=== PATIENT | male | born 1965 | race Caucasian/White ===

== ENCOUNTER 2020-05-20 17:33 | Emergency (ER) | payer OTHER, SELFPAY ==
[2020-05-20 17:36] VITALS: BP 143/91; PULSE 85; RESP 16; TEMP 36.7; O2SAT 98; BMI 27.3
--- NOTE | 2020-05-20 17:42 | HMH.EDGENADL ---
ED Disposition Clinical Impression: Acute anxiety Disposition: Home, Self-Care Condition on Discharge: Good Instructions: Anxiety Disorders, Anxiety and Panic Attacks (Alternative Therapy) Prescriptions: hydrOXYzine pamoate [Vistaril 25mg capsule] 25 mg PO BID PRN #10 cap PRN Reason: Anxiety Prescription Printed Referrals: Lakhwinder Escobedo MD [Staff Physician] - - Critical Care Critical Care Time: No Attestation: On , the high probability of a clinically significant, sudden or life threatening deterioration of the following system(s) required my full and direct attention, intervention and personal management. The time I documented below is in addition to time spent performing reported procedures but includes the following listed in this critical care notation. Medical Decision Making - Medical Records Medical records reviewed: Yes: I reviewed the patient's medical records. - Kaushal Inquiry Pt receiving controlled substance: No Vital Signs: 05/20/20 17:36 Temperature 98.1 F Temperature Source Oral Pulse Rate [Left Radial] 85 Respiratory Rate 16 Blood Pressure [Right Arm] 143/91 H Blood Pressure Mean [Right Arm] 108 Blood Pressure Position [Right Arm] Sitting 02 Sat by Pulse Oximetry 98 Oxygen Delivery Method Room Air Orders (Tests/Meds): ED MEDICATIONS Discontinued Medications Generic Name Dose Route Start Last Admin Trade Name Freq PRN Reason Stop Dose Admin Hydroxyzine Pamoate 25 mg 05/20/20 17:52 Vistaril 25mg Capsule PO 05/20/20 17:53 ONCE ONE Medical Decision Narrative: Patient here with increased situational anxiety. Given Vistaril here and will discharge home with a short course of this as well. He does not currently have a primary care doctor, but does have an idea of who he would like to follow-up with and [facility] which is where he lives. No suicidal or homicidal ideation. No recent acute illnesses that would prompt further work-up. Discussed continuing to use his son as social support and encouraged to return for any worsening symptoms. General Adult HPI - General Stated complaint: Anxiety Time Seen by Provider: 05/20/20 17:42 Mode of Arrival: Ambulatory Source of Information: Patient Limitations: No Limitations - History of Present Illness HPI narrative: 54-year-old male with a past medical history significant for anxiety who presents to the emergency department for evaluation of increased anxiety over the last several days. He has had some social situations recently that have caused him to have heightened anxiety. He struggled with this in his early 20s, but has not had many issues since, but then he had repeated night terrors for many years. He has been using his son poor social support and denies any suicidal or homicidal ideation. No recent acute illnesses. He states he is having trouble sleeping and feels fidgety. - Related Data Previous Rx's Medication Instructions Recorded hydrOXYzine pamoate [Vistaril 25mg 25 mg PO BID PRN #10 cap 05/20/20 capsule] Allergies Allergy/AdvReac Type Severity Reaction Status Date / Time No Known Allergies Allergy Verified 05/20/20 17:56 [facility] History - Hepatitis A Screen Attestation statement:: This patient has been screened for Hepatitis A risk factors. I have reviewed the patient's past medical history: Yes Medical History: Reports:: Anxiety ROS Obtained: Yes All systems reviewed & no additional complaints Physical Exam - General General appearance: alert, in no apparent distress - Head Head exam: atraumatic, normocephalic - Eye Eye exam: Present: normal appearance, PERRL, EOMI - ENT ENT exam: Present: normal exam, mucous membranes moist - Respiratory Respiratory exam: Present: normal lung sounds bilaterally. Absent: respiratory distress - Cardiovascular Cardiovascular exam: Present: regular rate, normal rhythm. Absent: JVD - Abdominal Exam Abdominal
[2020-05-20 18:06] VITALS: BP 130/85; PULSE 79; RESP 17; TEMP 36.7; O2SAT 98
== END 2020-05-20 18:08 | disposition home or self-care (01) ==
PROVIDERS: Emergency Provider Emergency Medicine
DX: F43.0 Acute stress reaction (principal)
CPT/HCPCS: 99281

== ENCOUNTER 2023-10-21 10:47 | Outpatient (CLI) | payer BC, SELFPAY ==
--- NOTE | 2023-10-21 11:05 | ECG_ITS ---
APPROVED REPORT Exam: Resting ECG HR:72 bpm ECG Measurements Heart Rate 72 AXES AR 140 P 76 QRSd 77 QRS 56 QT 356 T 79 QTc 379 Conclusion SINUS RHYTHM NORMAL ECG UNCONFIRMED REPORT Electronically signed by : Villa Collier MD 10/22/2023 21:26:54
[2023-10-21 11:08] LABS: Microscopic, Urine URINE MICROSCOPIC (MICROSCOPIC)
[2023-10-21 11:54] LABS: Basophils # 0.1 K/mm3 (0-0.2); Basophils % 0.6 % (0.1-2.0); Eosinophils # 0.1 K/mm3 (0.0-0.4); Eosinophils % 0.7 % (0.1-12.0); Hematocrit 47.8 % (42.0-52.0); Hemoglobin 16.4 g/dL (14.1-18.0); Lymphocytes # 3.1 K/mm3 (0.7-4.5); Lymphocytes % 28.6 % (10-50); Mean Corpuscular HGB Conc 34.3 g/dL (31.8-35.4); Mean Corpuscular Hemoglobin 31.1 pg (27.0-31.2); Mean Corpuscular Volume 90.5 fl (80-94); Mean Platelet Volume 7.7 fl (7.4-10.4); Monocytes # 0.7 K/mm3 (0.1-1.0); Monocytes % 6.5 % (1.7-9.3); Neutrophils # 6.8 K/mm3 (1.8-7.8); Neutrophils % 63.6 % (37.0-80.0); Platelet Count 246 K/mm3 (142-424); Red Blood Count 5.28 M/mm3 (4.60-6.20); Red Cell Distribution Width 13.8 % (11.5-17.5); White Blood Count 10.6 K/mm3 (4.8-10.8)
[2023-10-21 12:05] LABS: Appearance,Urine CLEAR (Clear); Bilirubin,Urine Negative (Negative); Blood, Urine Negative (Negative); Color,Urine YELLOW (Yellow); Glucose,Urine (UA) Negative (Negative); Ketones,Urine Negative (Negative); Leukocyte Esterase,Urine Negative (Negative); Nitrate,Urine Negative (Negative); PH,Urine 7.5 (5.0-8.5); Protein,Urine Negative (Negative); Specific Gravity, Urine 1.015 (1.005-1.030); Urobilinogen,Urine 0.2 EU/dl (0.2)
[2023-10-21 12:10] LABS: Chloride 101 mmol/L (98-107); Potassium 3.8 mmoL/L (3.5-5.1); Sodium 140 mmol/L (136-145)
[2023-10-21 12:13] LABS: Anion Gap 12.8 mEq/L (5-15); Blood Urea Nitrogen 12 mg/dl (9-20); Calcium 8.9 mg/dl (8.4-10.2); Carbon Dioxide 30 mmol/L (22.0-30.0); Estimated Glomerular Filt Rate 76 ml/min (>60); GFR (African American) 92 ML/MIN (>60); Glucose 94 mg/dl (74-100)
[2023-10-21 12:22] LABS: Bacteria,Urine Trace /lpf; Squamous Epithelial Cell,Urine Occasional #/hpf (0-5)
== END 2023-10-21 23:59 ==
LOC: LAB 10:48
PROVIDERS: PCP Family Medicine; Visit Provider Surgery
DX: Z01.818 Encounter for other preprocedural examination (principal); K40.90 Unilateral inguinal hernia, without obstruction or gangrene, not specified as recurrent
CPT/HCPCS: 36415; 80048; 81001; 85025; 93005

== ENCOUNTER 2023-10-29 08:18 | Day surgery (SDC) | payer BC, SELFPAY ==
[2023-10-28 12:50] VITALS: BMI 28.3
[2023-10-29] VITALS (9 sets, daily range): BP systolic 124–150; BP diastolic 68–87; PULSE 72–85; RESP 15–20; TEMP 36.4–37.6; O2SAT 93–98
[2023-10-29] MEDS: LACTATED RINGERS 1000ML 1,000 ML 25 ML IV (08:54)
--- NOTE | 2023-10-29 09:01 | EXP.ANES.CKL ---
[facility] Disclaimer: The information contained in this section may have been updated after the patient was seen, as this information can be updated by other users. Medical History Left inguinal hernia Surgical History History of appendectomy History of colonoscopy Family History Mother Cancer colon cancer Diabetes Father Coronary artery disease Social History (Updated 10/29/23 @ 08:50 by Itzel Harrison RN) Smoking Status: Never smoker alcohol intake: never substance use type: denies use current occupational status: employed Travel in the last 8 weeks: None household members: other details: mother, sister, brother in law housing: house [facility] Anesthesia Checklist Patient Identification Patient Identification: Arm Band Structural Data Admitted From: Home Planned Operative Procedure/s: Open Left Inguinal Hernia Repair Consent for Planned Operative Procedure(s) Verified: Yes Verified Documents: Surgical Consent and History and Physical NPO Status Verified Time NPO: 00:00 Additional verifications Anesthesia Reactions: No Hx Blood Transfusions: No Blood Transfusion Reaction: No Airway Assessment Mallampati Score:: Class II C-Spine Mobility Assessed: Yes TMJ Mobility Assessed: Yes Dentition: Good Dentition Neurological Assessment Level of Consciousness: Awake and Alert Anesthesia Plan Anesthesia Risk discussed: Yes Anesthesia Plan: Verified ASA Class: II Anesthesia Type: General
[2023-10-29] MEDS: CEFAZOLIN SODIUM 1 GM in 0.9 % SODIUM CHLORIDE 50 ML IV (10:30)
[2023-10-29] MEDS: LIDOCAINE 1% 30ML PF VIAL 30 ML (10:50)
--- NOTE | 2023-10-29 10:52 | PC.NURSE ---
Addendum entered by Sole Mejia RN 10/29/23 11:04: Wrong patient. Enter error. Original Note: 1000- Crepitus noted in upper chest and neck on arrival to PACU. MD notified and anesthesia aware of condition. VSS, no further orders at this time.
--- NOTE | 2023-10-29 12:55 | P.OP_ITS ---
Date of procedure: 10/29/23 Pre-op Diagnosis:: Chronically-incarcerated left scrotal hernia Post-op Diagnosis:: Same Procedure performed:: Open left inguinal hernia repair (chronically-incarcerated scrotal hernia) Surgeon:: Red Thurston MD AUDIO/VISUAL MANAGER:: Jason Wolf Anesthesia: GETA Estimated blood loss (mL): 25 Operative findings:: Chronically-incarcerated colon Severe inflammatory changes throughout canal Hernia sac, incarcerated colon, vessels, and vas deferens severely adhesed Operative note:: After informed consent was obtained the patient was taken to the operating room and placed in the supine position. General anesthesia was induced and his lower abdomen and groin/scrotum were prepped and draped in a sterile fashion. After infiltration with local anesthetic an oblique incision was made in the left jayla in. Dissection was taken through Clayton's fascia to the level of the external aponeurosis. Massive distention consistent with chronic incarceration immediately noted. The aponeurosis was partially damaged by underlying incarcerated contents/pressure. The external aponeurosis (remaining portion) was sharply opened to the level of the external ring/incarcerated contents. An underlying massive hernia sac with projection throughout the inguinal canal and scrotum was encountered. Severe adhesions and inflammatory changes noted. Identifying the vas deferens and vasculature was exceptionally difficult secondary to these findings; however, no obvious injury to these structures noted.. The hernia sac was carefully opened. Gentle/persistent traction was utilized to free incarcerated colon from the scrotum. No obvious perforation or areas of ischemia noted. A small serosal rent was reapproximated with running Vicryl suture. The freed colon was then carefully maneuvered back into the a bdominal cavity. A focal attachment of colon to hernia sac consistent with sliding hernia was confirmed. The hernia sac was carefully elevated and transected just beyond the level of the internal ring. The distal hernia sac was freed from surrounding tissue and passed off for pathologic evaluation. No obvious injury to vasculature or vas deferens noted. As stated above, severe inflammatory changes noted throughout and adhesions made this dissection very difficult and anatomic identification difficult. An extra-large PerFix plug was secured in position with interrupted Ethibond. The PerFix overlay was then secured to the shelving edge inferiorly and fascial margin superiorly with interrupted Ethibond. The external aponeurosis was reapproximated with running Vicryl suture. Clayton's fascia was closed in the same manner. The INSORB stapling device was then used to close skin. Dressings were applied and the patient was transferred to recovery in stable condition. Condition: stable Disposition: PACU Specimens:: Hernia sac Complications:: No immediate
--- NOTE | 2023-10-29 13:05 | EXP.ANES.I ---
[facility] Anesthesia Record Part I Anesthesia Record I Intake, IV Amount: 800 Hydration: Adequate Estimated blood loss (mL): 15 Urine output (mL): 0 Blood Pressure: 129/79 SaO2: 94 Pulse Rate: 72 Airway Patency: Patent Respiratory Rate: 15 Temperature: 99.6 F Patient is:: Drowsy and Oral/Nasal airway Stable to PACU at:: 13:04
[2023-10-30 11:49] VITALS: BP 131/87; PULSE 84; RESP 20; TEMP 36.4; O2SAT 94
--- NOTE | 2023-10-30 11:49 | EXP.ANES.II ---
[facility] Anesthesia Record Part II Anesthesia Record Part II Discharge Time: 13:34 Destination: Surgical Day Care (OP Surgery) PACU nurse assessment reviewed?: Yes Patient Condition:: Good Anesthesia Complications:: None Swallowing reflex intact?: Yes Airway Patency: Patent Cyanosis?: No Blood Pressure: 131/87 SaO2: 94 Respiratory Rate: 20 Pulse Rate: 84 Temperature: 97.6 F Mental Status: Alert & Oriented Pain level:: 0 Nausea and/or vomitting:: None Intake, IV Amount: 0 Hydration: Adequate
== END 2023-10-29 14:10 | disposition home or self-care (01) ==
PROVIDERS: PCP Family Medicine; Visit Provider Surgery
PROC: (CPT 49507; principal; 2023-10-29 10:00)
DX: K40.30 Unilateral inguinal hernia, with obstruction, without gangrene, not specified as recurrent (principal)
CPT/HCPCS: 49507; 87086; 96374; J2405

== ENCOUNTER 2024-01-13 10:50 | Outpatient (CLI) | payer BC, SELFPAY ==
--- NOTE | 2024-01-13 10:50 | FL_ITS ---
FINAL REPORT CLINICAL HISTORY: dysphagia 186.24 dap 2.38 fluoro time FINDINGS: MODIFIED BARIUM SWALLOW History: Dysphagia FINDINGS: Fluoroscopy was provided for the speech pathologist to evaluate the swallowing mechanism. The patient was given several different consistencies of barium while the swallow was visualized fluoroscopically. The report of the speech pathologist should be consulted prior to making dietary decisions. FLUOROSCOPY TIME: 2 minutes 38 seconds Fluoro dose: 186.24 DAP in uGym2 IMPRESSION: Modified barium swallow under fluoroscopic guidance. Please see the report of the speech pathologist for Dietary recommendations. Films reviewed , interpreted and dictated by Dr. Hoskins Transcribed by Jeremy Eaton PA-C. Reviewed, Interpreted and Dictated by Marty Hoskins III, MD Transcribed by HEBERT Valles Authenticated and [facility]
[2024-01-13] MEDS: BARIUM SULFATE(LIQUID E-Z-PAQUE);355ML BOTTLE 355 ML PO (11:16)
--- NOTE | 2024-01-13 11:45 | HMH.SLMBS2 ---
Speech & Language Evaluation Speech/Language Mod Barium Swallow Start: 01/13/24 11:23 Freq: once Status: Complete Protocol: Document 01/13/24 11:23 BOY (Rec: 01/13/24 11:45 BOY [id number]) General Information General Current Food Consistancy Regular,Thin Liquids Dentition Good Dentition Oxygen Status Room Air Patient Orientation Person,Place,Time,Situation Ability to Follow Directions Good Communication Ability No Impairment MBS Recommendations Diet Dietary Recommendations Regular,Thin Liquids Treatment/Strategies Treatment Recommendation Compens. Strategy Educat. Strategy/Precaution Recommend Sitting Upright (90 deg), Double Swallow,No Straw,Small Bites and Sips,Alternate Liquids/Solids Mod Barium Swallow Impressions Summary and Impressions Oral Phase Impression Mild Impairment Oral Phase Summary Mild impairment of the oral preparatory and oral transit of the swallow. Solid bolus trials were observed to scatter with residuals found at roof of oral cavity and under patients tongue. He required multiple swallows to clear these residuals. Mr. Dotson reported he feels like food frequent gets stuck in his oral cavity. FULL TIME educated on use of extra sauces and gravys with his solid bolus, as well as implementation of a puree/pudding wash at meals and he expressed understanding . Pharyngeal Phase Impression Mild Impairment Pharyngeal Phase Summary Mild impairment of the pharyngeal phase of the swallow. No aspiration observed throughout the study. When presented with straw sips of thin liquids, pt exhibited ijeoma residuals in the vallecular space that required multiple, hard swallows to clear. He was also noted to require multiple swallow attempts to clear solid bolus. Across all consistencies swallow is delayed. Speech/Language MBS Assessment/Goals/Plan Assessment Date of Evaluation: 01/13/24 Evaluation Type Initial Certification Assessment/Problems dysphagia per MD order. Does Patient Qualify for Service No Qualify/Failure Comment Based on clinical observations made during MBSS, throughout implementation of compensatory strategies and aspiration precautions, Mr. Dotson's oropharyngeal phase of the swallow is WFL given age and dx. Recommendations PHYSICIAN CERTIFICATION: The specified therapy services are required, authorized, and reviewed every 30 days. Diet Recommendations Normal Liquid Type Recommendations Normal/Thin SL Swallow Guidelines Alt bite w/sip thru meal, Standard Aspiration Prec. Dysphagia Swallow Precautions/Strategies Sitting Upright (90 deg), Double Swallow,No Straw,Small Bites and Sips,Alternate Liquids/Solids Plan Pt/Guardian verbally ack understanding Yes of dx/prognosis/goals G -code Required No Education Instructions provided Discussed MBSS results, recommendations, strategies, and precautions with pt who expressed understanding. Pt/Caregiver able to recall information Able to recall/restate Reinforcement needed No Mod Barium Swallow Setup Exam Setup Radiologist Marty Hoskins Level of Consciousness Awake,Alert,Appropriate, Follows Commands Mod Barium Swallow-Lat View Textures Lateral View Food Presentation Thin Liquid via Cup,Thin Liquid via Straw,Pureed Food- Thin,Mech. Soft Food- Regular, Barium Tablet,Regular Food, Pudding Oral Phase Labial Closure No Impairment (WFL) Bolus Formation Pooling L/R Minimal Impairment Bolus Formation under Tongue Mild Impairment Bolus Formation Scattered Loss Mild Impairment Mastication Rotary Chew Minimal Impairment Mastication Munching Minimal Impairment Mastication Lateralization Mild Impairment Lingual Movement Mild Impairment Residue Clearing Mild Impairment Pharyngeal Phase A/P Lingual Propulsion Spills Mild Impairment Swallow Response Delay Mild Impairment Base of Tongue Minimal Impairment Epiglottic Coverage Minimal Impairment Laryngeal Elevation Mild Impairment Vallecular Retention Clearing Mild Impairment Pharyn. Wall Residue Clearing Minimal Impairment Piriform Sinus Retention Minimal Impairment Aspiration? No Silent aspiration? No Mod Barium Swallow-AP View Performed Mod Barium Swallow A/P View Test Not Applicable/Performed PHYSICIAN CERTIFICATION: I certify the specified therapy services for Bob Dotson are required, authorized, and reviewed every 30 days.
== END 2024-01-13 23:59 ==
LOC: RAD 10:50
PROVIDERS: PCP Family Medicine; Visit Provider Specialist
DX: R13.10 Dysphagia, unspecified (principal)
CPT/HCPCS: 70371; 92611

== ENCOUNTER 2025-05-30 10:45 | Outpatient (CLI) | payer OTHER, SELFPAY ==
[2025-05-30 19:36] LABS: Hematocrit 43.5 % (42.0-52.0); Hemoglobin 14.3 g/dL (14.1-18.0); Immature Granulocytes % 0.2 %; Mean Corpuscular HGB Conc 32.9 g/dL (31.8-35.4); Mean Corpuscular Hemoglobin 29.3 pg (27.0-31.2); Mean Corpuscular Volume 89.1 fl (80-94); Nucleated Red Blood Cells % 0 %; Platelet Count 223 K/mm3 (142-424); Red Blood Count 4.88 M/mm3 (4.60-6.20); Red Cell Distribution Width-SD 42.0 fL; White Blood Count 8.2 K/mm3 (4.8-10.8)
[2025-05-30 20:01] LABS: Alanine Aminotransferase 8 U/L (12-78); Albumin Level 4.4 g/dl (3.5-5.0); Albumin/Globulin Ratio 1.6 (1.1-1.8); Alkaline Phosphatase 56 U/L (38-126); Anion Gap 14.3 mEq/L (5-15); Aspartate Amino Transferase 35 U/L (17-59); Bilirubin,Total 0.8 mg/dl (0.2-1.3); Blood Urea Nitrogen 12 mg/dl (9-20); Calcium 8.9 mg/dl (8.4-10.2); Carbon Dioxide 23 mmol/L (22.0-30.0); Chloride 107 mmol/L (98-107); Cholesterol 215 mg/dl (140-200); Creatinine,Serum 1.00 mg/dl (0.66-1.25); Estimated Glomerular Filt Rate 76 ml/min (>60); GFR (African American) 92 ML/MIN (>60); Globulin 2.7 g/dL (1.3-3.2); Glucose 74 mg/dl (74-100); HDL Cholesterol 40 mg/dl (40-60); Potassium 4.3 mmoL/L (3.5-5.1); Sodium 140 mmol/L (136-145); Total Protein,Serum 7.1 g/dl (6.3-8.2); Triglycerides 172 mg/dl (30-150)
[2025-05-30 20:32] LABS: Thyroid Stimulating Hormone 2.05 uIU/mL (0.465-4.68)
[2025-05-30 20:51] LABS: Vitamin B12 337 pg/mL (239-931)
== END 2025-05-30 23:59 | disposition home or self-care (01) ==
LOC: LAB.DROPOF 05-31 12:41
PROVIDERS: PCP Family Medicine; Visit Provider Family Medicine
DX: E53.8 Deficiency of other specified B group vitamins (principal); I10 Essential (primary) hypertension; G20.C Parkinsonism, unspecified; Z68.30 Body mass index [BMI] 30.0-30.9, adult
CPT/HCPCS: 80053; 80061; 82607; 84443; 85025

== ENCOUNTER 2025-06-27 06:43 | Day surgery (SDC) | payer OTHER, SELFPAY ==
[2025-06-23 10:04] VITALS: BMI 29.9
[2025-06-27] MEDS: LACTATED RINGERS 1000ML 1,000 ML 50 ML IV (06:58)
[2025-06-27 07:06] VITALS: BP 140/79; PULSE 75; RESP 18; TEMP 36.1; O2SAT 97
--- NOTE | 2025-06-27 07:23 | EXP.ANES.CKL ---
[facility] Disclaimer: The information contained in this section may have been updated after the patient was seen, as this information can be updated by other users. Medical History Vitamin B12 deficiency Tremor Minimal resting tremor Parkinsonian syndrome Most likely Parkinson disease with excellent response to carbidopa/levodopa CR 50/200 tid. May benefit from increasing dose or adding Comtan but reluctant to change medication at this time. Hypertension History of inguinal hernia Left inguinal hernia Large complex left scrotal hernia Surgical History History of hernia surgery History of appendectomy History of colonoscopy Family History Mother Cancer colon cancer Diabetes Father Coronary artery disease Social History (Updated 06/27/25 @ 07:04 by Mac Busch RN) Smoking Status: Never smoker alcohol intake: never substance use type: denies use current occupational status: disabled Travel in the last 8 weeks?: None household members: family housing: house Have you lived/traveled outside [place] in past 30 days?: No Contact w/someone who lives/traveled outside US past 30 days?: No Exposure to someone with infectious disease in past 14 days?: No Do you have a fever (greater than 100.4 F or 38 C)?: No Have you tested positive for COVID-19?: No Exposed to someone with COVID-19 in past 14 days?: No Do you have a sore throat?: No Do you have a cough?: No Do you have any weakness?: No Are you experiencing any nausea/vomitting?: No Do you have any diarrhea?: No Are you experiencing any unusual bleeding?: No Do you have any muscle aches/pain?: No Do you have any abdominal pain?: No Are you experiencing loss of taste or smell?: No [facility] Anesthesia Checklist Patient Identification Patient Identification: Arm Band and Verbal (Name & ) Structural Data Admitted From: Home Planned Operative Procedure/s: colonoscopy Consent for Planned Operative Procedure(s) Verified: Yes Verified Documents: Surgical Consent NPO Status Verified Time NPO: 00:00 Chart Verification Results Verified: None Additional verifications Anesthesia Reactions: No Hx Blood Transfusions: No Blood Transfusion Reaction: No Airway Assessment Mallampati Score:: Class II C-Spine Mobility Assessed: Yes TMJ Mobility Assessed: Yes Dentition: Good Dentition Neurological Assessment Level of Consciousness: Awake, Alert and Appropriate Hx Seizures: No Numbness or tingling in extremities: No Anesthesia Plan Anesthesia Risk discussed: Yes Anesthesia Plan: Verified ASA Class: II Anesthesia Type: MAC
--- NOTE | 2025-06-27 07:32 | EXP.GEN.HP ---
HPI HPI HPI: This is a 60-year-old gentleman who presents for colonoscopy. He reports a family history of colon cancer. [facility] Disclaimer: The information contained in this section may have been updated after the patient was seen, as this information can be updated by other users. Medical History Vitamin B12 deficiency Tremor Minimal resting tremor Parkinsonian syndrome Most likely Parkinson disease with excellent response to carbidopa/levodopa CR 50/200 tid. May benefit from increasing dose or adding Comtan but reluctant to change medication at this time. Hypertension History of inguinal hernia Left inguinal hernia Large complex left scrotal hernia Surgical History History of hernia surgery History of appendectomy History of colonoscopy Family History Mother Cancer colon cancer Diabetes Father Coronary artery disease Social History (Updated 06/27/25 @ 07:04 by Mac Busch RN) Smoking Status: Never smoker alcohol intake: never substance use type: denies use current occupational status: disabled Travel in the last 8 weeks?: None household members: family housing: house Have you lived/traveled outside US in past 30 days?: No Contact w/someone who lives/traveled outside US past 30 days?: No Exposure to someone with infectious disease in past 14 days?: No Do you have a fever (greater than 100.4 F or 38 C)?: No Have you tested positive for COVID-19?: No Exposed to someone with COVID-19 in past 14 days?: No Do you have a sore throat?: No Do you have a cough?: No Do you have any weakness?: No Are you experiencing any nausea/vomitting?: No Do you have any diarrhea?: No Are you experiencing any unusual bleeding?: No Do you have any muscle aches/pain?: No Do you have any abdominal pain?: No Are you experiencing loss of taste or smell?: No Other Medical History Have you received the Flu Vaccine for this season: No Have you received the Pneumonia Vaccine: No Review of Systems Review of Systems Review of systems:: pertinent systems reviewed and negative unless documented below Meds Home Medications and Allergies Home Medications ?Medication ?Instructions ?Recorded ?Confirmed ?Type carbidopa ER 50 mg-levodopa 200 mg 1 tab PO TID #90 tabs 12/26/24 06/27/25 Rx tablet,extended release pravastatin 10 mg tablet 10 mg PO DAILY #30 tabs 05/31/25 06/27/25 Rx New Prescriptions to Start Prescriptions: Allergies Allergy/AdvReac Type Severity Reaction Status Date / Time No Known Allergies Allergy Verified 06/26/25 10:24 Exam Data for Last 24 hours Vital signs and Labs for Last 24 Hours: Temp Pulse Resp BP Pulse Ox O2 Del Method 97.0 F L 75 18 140/79 97 Room Air 06/27/25 07:06 06/27/25 07:06 06/27/25 07:06 06/27/25 07:06 06/27/25 07:06 06/27/25 07:06 Constitutional Constitutional: no acute distress *Routine HEENT Exam Head: Present normocephalic Eye: Present EOMI ENT: Present mucous membranes moist *Routine Neck Exam Neck: Present full ROM *Routine Respiratory Exam Respiratory: Absent respiratory distress *Routine Cardiovascular Exam Cardiovascular: Absent tachycardia *Routine Abdominal Exam Abdominal: Present soft *Routine Rectal Exam Rectal:: deferred *Routine Genitalia Exam Genitalia:: deferred *Routine Extremities Exam Extremities: Present full ROM *Routine Skin Exam Skin: Absent erythema *Routine Neurological Exam Neurological: Present alert Assessment and Plan *Assessment and plan (1) Family history of colon cancer: Status: Acute Category: Medical Code(s): Z80.0 - Family history of malignant neoplasm of digestive organs Plan: Colonoscopy today I have discussed the risks and benefits including, but not limited to: Bleeding Infection Damage to surrounding tissue Inherent risks of sedation The patient agrees to proceed.
[2025-06-27 08:05] VITALS: BP 88/53; PULSE 66; RESP 16; TEMP 36.1; O2SAT 93
--- NOTE | 2025-06-27 08:12 | P.PCN_ITS ---
Procedure: Date: 06/27/25 Patient Date of :: 1965 Procedure Performed:: Colonoscopy Indications:: Family history of colon cancer Screening Performing Provider:: Red Thurston MD Referring Provider:: . Sedation:: Monitored anesthesia care Procedure:: After informed consent was obtained the patient was taken to the endoscopy suite. Sedation ensued after the patient was transferred to the left lateral d ecubitus position. Pulse, blood pressure, and oxygen saturation were monitored throughout the procedure. Digital rectal exam revealed no significant abnormality. The colonoscope was placed in position. The entire colon was evaluated. The colonoscope was carefully removed and the patient was transferred to recovery in stable condition. Please see findings and specimens below for detail. Findings:: Bowel preparation moderate to poor Fairly profound spasticity/lack of relaxation Moderate tortuosity Specimens:: None Recommendations:: Repeat colonoscopy in 2-3 years with extended/alternate bowel preparation secondary to above findings, as well as, family history of colon cancer. If repeat colonoscopy reveals no abnormality, timing of future colonoscopies will likely be extended. Complications:: No immediate Estimated blood obtained (mL): 0 Colonoscopy Component Colonoscopy Component Was a colonoscopy performed during today's procedure?: Yes Recommended follow up colonoscopy of at least 10 years?: No If no, follow up colonoscopy recommended in ___ years?: (See above) Reason for not recommending >/= 10 yr follow-up interval?: (See above)
[2025-06-27 08:15] VITALS: BP 92/59; PULSE 61; RESP 16; TEMP 36.1; O2SAT 95
[2025-06-27 08:25] VITALS: BP 111/78; PULSE 74; RESP 17; TEMP 36.1; O2SAT 97
[2025-06-27 08:35] VITALS: BP 119/74; PULSE 65; RESP 18; TEMP 36.1; O2SAT 97
== END 2025-06-27 09:00 | disposition home or self-care (01) ==
PROVIDERS: PCP Family Medicine; Visit Provider Surgery
PROC: 0DJD8ZZ Inspection of Lower Intestinal Tract, Via Natural or Artificial Opening Endoscopic (ICD-10-PCS; CPT 45378; principal; 2025-06-27 07:30)
DX: Z12.11 Encounter for screening for malignant neoplasm of colon (principal); Z80.0 Family history of malignant neoplasm of digestive organs; I10 Essential (primary) hypertension; G20.A1 Parkinson's disease without dyskinesia, without mention of fluctuations; Z79.899 Other long term (current) drug therapy
CPT/HCPCS: 45378; J2003; J2704; J7120

== ENCOUNTER 2025-08-30 10:05 | Outpatient (CLI) | payer OTHER, SELFPAY ==
[2025-08-30 18:18] LABS: Alanine Aminotransferase 16 U/L (12-78); Albumin Level 4.6 g/dl (3.5-5.0); Albumin/Globulin Ratio 1.6 (1.1-1.8); Alkaline Phosphatase 72 U/L (38-126); Anion Gap 13.1 mEq/L (5-15); Aspartate Amino Transferase 32 U/L (17-59); Bilirubin,Total 0.7 mg/dl (0.2-1.3); Blood Urea Nitrogen 11 mg/dl (9-20); Calcium 8.9 mg/dl (8.4-10.2); Carbon Dioxide 25 mmol/L (22.0-30.0); Chloride 103 mmol/L (98-107); Cholesterol 166 mg/dl (140-200); Creatinine,Serum 1.00 mg/dl (0.66-1.25); Estimated Glomerular Filt Rate 76 ml/min (>60); GFR (African American) 92 ML/MIN (>60); Globulin 2.8 g/dL (1.3-3.2); Glucose 84 mg/dl (74-100); HDL Cholesterol 42 mg/dl (40-60); Potassium 4.1 mmoL/L (3.5-5.1); Sodium 137 mmol/L (136-145); Total Protein,Serum 7.4 g/dl (6.3-8.2); Triglycerides 203 mg/dl (30-150)
[2025-08-30 19:30] LABS: Hepatitis C Ab Qual. W/ RFX NEGATIVE (Negative)
[2025-09-02 03:36] LABS: Hepatitis B Surface Antigen Negative (Negative)
== END 2025-08-30 23:59 ==
LOC: LAB.DROPOF 09-04 10:05
PROVIDERS: PCP Family Medicine; Visit Provider Family Medicine
DX: E78.5 Hyperlipidemia, unspecified (principal); Z11.59 Encounter for screening for other viral diseases; Z11.4 Encounter for screening for human immunodeficiency virus [HIV]; R35.1 Nocturia
CPT/HCPCS: 80053; 80061; 86803; 87340; 87389; G0103